=== PATIENT | female | born 1985 | race Caucasian/White ===

== ENCOUNTER 2017-10-30 12:03 | Emergency (ER) | payer BC ==
--- NOTE | 2017-10-30 12:51 | PHYS DOC ---
Adult General Chief Complaint Chief Complaint: FOREIGNBODY EAR HPI HPI 32-year-old female patient complaining of bug in right ear for one week. Patient states she felt a bug in her ear because she had 4 times bug in her ear before and"she knows how it feels to have a bug in her ear". Patient states she tried to take home remedy but it did not get anything back and she feels pain in her ear related to messing up with her ear. Patient denies change of hearing , ear drainage, nausea and vomiting, headache. Review of Systems Review of Systems Constitutional: Denies fever or chills [] Eyes: Denies change in visual acuity, redness, or eye pain [] HENT: Denies nasal congestion or sore throat , reports earache[] Respiratory: Denies cough or shortness of breath [] Cardiovascular: No additional information not addressed in HPI [] GI: Denies abdominal pain, nausea, vomiting, bloody stools or diarrhea [] : Denies dysuria or hematuria [] Musculoskeletal: Denies back pain or joint pain [] Integument: Denies rash or skin lesions [] Neurologic: Denies headache, focal weakness or sensory changes [] Endocrine: Denies polyuria or polydipsia [] All other systems were reviewed and found to be within normal limits, except as documented in this note. Physical Exam Physical Exam Constitutional: Well nourished, no acute distress, non-toxic appearance, anxious. [] HENT: Normocephalic, atraumatic, bilateral external ears normal, no foreign body in the right ear, small area of erythema right ear canal, oropharynx moist , no oral exudates, nose normal. [] Eyes: PERRLA, EOMI, conjunctiva normal, no discharge. [] Neck: Normal range of motion, no tenderness, supple, no stridor. [] Cardiovascular:Heart rate regular rhythm, no murmur [] Lungs & Thorax: Bilateral breath sounds clear to auscultation [] Neurologic: Alert and oriented X 3, normal motor function, normal sensory function, no focal deficits noted. [] Psychologic: Affect anxious, judgement normal, mood normal. [] EKG EKG [] Radiology/Procedures Radiology/Procedures [] Course & Med Decision Making Course & Med Decision Making Evaluation of patient in ER showed 32-year-old female patient with complaining of a bug in her right ear for more than one week the same as her previous 4 episodes of bug in her ear. She and had small area of irritation of right ear canal without foreign body in her ear. Patient insisted that he bought in her ear. Her ear irrigation did not show any foreign body. Patient was upset about the nurse and me that we didn't stay all the time with her in the room while she was in ER and did not believe that she did not have anything in her ear. Patient asking for second opinion and information about on-call ENT was given and instructed to follow up with her primary care physician or on-call ENT. Dragon Disclaimer Dragon Disclaimer This electronic medical record was generated, in whole or in part, using a voice recognition dictation system. Departure Departure: Impression: Primary Impression: External otitis of right ear Additional Impressions: Anxiety Hallucination Feared condition not demonstrated Disposition: 01 HOME, SELF-CARE (At 1305) Condition: STABLE Referrals: PCP,NO (PCP) Patient Instructions: Otitis Externa Additional Instructions: Follow-up with ENT on-call Dr Sheri Johnson at [phone] regarding foreign body sensation in your ear, no foreign body was found in the emergency room Scripts Ciprofloxacin/Hydrocortisone (CIPRO HC OTIC SUSPENSION) 10 Ml Drops.susp 3 DROP RIGHT EAR BID for 5 Days, #10 ML Prov: TARA DUNCAN MD 10/30/17 Problem Qualifiers TARA DUNCAN MD Oct 30, 2017 12:51
[2017-10-30] MEDS ORDERED: CIPR10DR RIGHT EAR (13:08)
== END 2017-10-30 13:12 | disposition home or self-care (01) ==
LOC: ER 12:03
DX: H60.91 Unspecified otitis externa, right ear (principal); F41.9 Anxiety disorder, unspecified; R44.3 Hallucinations, unspecified; Z71.1 Person with feared health complaint in whom no diagnosis is made
CPT/HCPCS: 99283

== ENCOUNTER 2018-11-13 08:02 | Emergency (ER) | payer BC ==
[~2018-11-13 08:02] MED LIST: CIPR10DR RIGHT EAR
[2018-11-13 08:14] VITALS: BP 138/80
[2018-11-13] MEDS ORDERED: PRED20TA PO (08:30)
[2018-11-13] MEDS ORDERED: DEXAMETHASONE SOD PHOS 10 MG/ML VIAL IM ONE (08:30)
--- NOTE | 2018-11-13 08:30 | PHYS DOC ---
Adult General Chief Complaint Chief Complaint: SKIN RASH/ABSCESS [facility] HPI Patient is a 33-year-old female who presents with complaint of diffuse rash on upper and lower extremities primarily. Patient states that she had mode an area that she knows had some poison sumac and poison beth in first noticed the rash on the first. She states that she has been treating it at home and rash has been progressively spreading and worsening. She states that she has blisters all over and is itchy everywhere. She denies any shortness of breath.[] Review of Systems Review of Systems Constitutional: Denies fever or chills [] Respiratory: Denies cough or shortness of breath [] Cardiovascular: No additional information not addressed in HPI [] Integument: Positive rash[] Current Medications Current Medications Current Medications Medications (Trade) Dose Ordered Sig/Karen Start Time Stop Time Status Last Admin Dose Admin Dexamethasone Sodium Phosphate (Decadron) 20 mg 1X ONCE 11/13/18 08:30 11/13/18 08:31 UNV Allergies Allergies Allergies Coded Allergies Type Severity Reaction Last Updated Verified No Known Drug Allergies 11/13/18 No Physical Exam Physical Exam Constitutional: Well developed, well nourished, no acute distress, non-toxic appearance. [] Cardiovascular:Heart rate regular rhythm, no murmur [] Lungs & Thorax: Bilateral breath sounds clear to auscultation [] Skin: Positive rash with linear array of vesicles on arms and legs. [] EKG EKG [] Radiology/Procedures Radiology/Procedures [] Course & Med Decision Making Course & Med Decision Making Pertinent Labs and Imaging studies reviewed. (See chart for details) [] Dragon Disclaimer Dragon Disclaimer This electronic medical record was generated, in whole or in part, using a voice recognition dictation system. Departure Departure: Impression: Primary Impression: Contact dermatitis due to poison sumac Disposition: HOME, SELF-CARE Condition: STABLE Referrals: PCP,NO (PCP) Patient Instructions: Contact Dermatitis, Poison Ingestion, First-Aid measures in Scripts Prednisone (PREDNISONE) 20 Mg Tablet 3 TAB PO DAILY for rash for 5 Days, #15 TAB Prov: DANIELLE MUNIZ Jr. DO 11/13/18 DANIELLE MUNIZ Jr. DO Nov 13, 2018 08:30
== END 2018-11-13 08:51 | disposition home or self-care (01) ==
LOC: ER 08:02
DX: L23.7 Allergic contact dermatitis due to plants, except food (principal)
CPT/HCPCS: 96372; 99283; J1100